=== PATIENT | male | born 1975 | race Two or more races ===

== ENCOUNTER 2018-12-23 22:44 | Emergency (ER) | payer SELFPAY ==
[~2018-12-23] VITALS: Ht 180.3 cm; Wt 97.5 kg
[2018-12-23 23:08] LABS: Basophils # (auto) 0 uL; Basophils % (auto) 0.2 % (0.0-2.0); Eosinophils # (auto) 0.1 uL; Hematocrit 41.5 % (41.0-53.0); Hemoglobin 14.4 g/dL (13.5-17.5); Lymphocytes # (auto) 1.9 uL; Lymphocytes % (auto) 23.8 % (10.0-50.0); Mean Corpuscular Hemoglobin 31.8 pg (28.0-32.0); Mean Corpuscular Hgb Conc. 34.7 g/dL (32.0-36.0); Mean Corpuscular Volume 91.8 fL (80.0-100.0); Monocytes # (auto) 0.7 uL; Monocytes % (auto) 9.1 % (0.0-12.0); Neutrophils # (auto) 5.3 uL; Neutrophils % (auto) 65.9 % (37.0-80.0); Platelet Count (auto) 253 10^3/uL (140-450); Red Blood Cells 4.52 10^6/uL (4.5-5.90); Red Cell Distribution Width 13.7 % (11.8-14.3); White Blood Cell 8.1 10^3/uL (4.4-10.8)
[2018-12-23 23:27] LABS: Albumin 4.2 g/dL (3.4-5.0); Calcium 8.8 mg/dL (8.5-10.1); Potassium 3.4 mmol/L (3.5-5.1)
[2018-12-23 23:29] LABS: BUN/Creatinine Ratio 16.2
[2018-12-23 23:32] LABS: Bilirubin, Total 0.7 mg/dL (0.2-1.0); Total Protein 7.9 g/dL (6.4-8.2)
[2018-12-24 04:41] VITALS: BP 124/85
[2018-12-24] MEDS ORDERED: ACETAMINOPHEN 325 MG TAB PO ONE (05:15)
== END 2018-12-24 05:24 | disposition home or self-care (01) ==
LOC: EDBD 22:44 → ER 22:51
DX: S01.81XA Laceration without foreign body of other part of head, initial encounter (principal); Y08.89XA Assault by other specified means, initial encounter; Y93.89 Activity, other specified; Y99.8 Other external cause status; Y92.89 Other specified places as the place of occurrence of the external cause
CPT/HCPCS: 36415; 70450; 72125; 80053; 85025